=== PATIENT | male | born 1980 | race Caucasian/White ===

== ENCOUNTER 2016-06-22 12:49 | Emergency (ER) | payer OTHER ==
[~2016-06-22] VITALS: Ht 177.8 cm; Wt 104.5 kg
[2016-06-22] MEDS ORDERED: IBUPROFEN 600 MG TABLET PO ONE (15:15)
[2016-06-22 15:34] VITALS: BP 129/76
== END 2016-06-22 16:54 | disposition home or self-care (01) ==
LOC: EMS 12:51
DX: K46.9 Unspecified abdominal hernia without obstruction or gangrene (principal); F17.210 Nicotine dependence, cigarettes, uncomplicated
CPT/HCPCS: 99282; 99283